=== PATIENT | male | born 1950 | race Hispanic/Latino ===

== ENCOUNTER → 2019-08-07 | Day surgery (SDC) | payer MEDICARE ==
[~2019-08-07] MED LIST: ASPIR 8181 MG PO; FENTANYL CITRATE/PF 100MCG/2 ML INJ ONE; FINASTERIDE5 MG PO; FLOMAX0.4 MG PO; LISINOPRIL10 MG PO; MIDAZOLAM HCL 2 MG/2 ML VIAL ONE; PROPOFOL IV EMULSION 10 MG/ML 50 ML VIAL ONE
--- OUTSIDE RECORDS SUMMARY | 2019-08-07 05:51 | XMS REPORT ---
Author Organization Unknown Address [address] [place] [address] Phone [phone] Care Team Providers Care Police Magistrate Name Role Phone JELLY "MANISHA DUMONT MD 3 [phone] Allergies Code Code System Name Reaction Severity Status Onset NKDA Medications Name Status Start Date Stop Date amlodipine 10 mg tablet Active Not available aspirin Completed 05/21/2017 aspirin 81 mg tablet,delayed release Take 1 tablet every day by oral route for 90 days. Active 05/21/2017 Not available atorvastatin 10 mg tablet Completed 02/14/2018 azithromycin 250 mg tablet Completed 02/14/2018 Bromfed DM 2 mg-30 mg-10 mg/5 mL syrup Completed 02/14/2018 cephalexin 500 mg capsule Completed 11/21/2017 ciprofloxacin 500 mg tablet Completed 11/21/2017 diphenoxylate-atropine 2.5 mg-0.025 mg tablet Completed 05/21/2017 finasteride 5 mg tablet Active Not available Gavilyte-C 240 gram-22.72 gram-6.72 gram-5.84 gram oral solution Completed 11/21/2017 ketorolac 0.5 % eye drops Completed 11/21/2017 levofloxacin 750 mg tablet Completed 11/21/2017 lisinopril 20 mg-hydrochlorothiazide 12.5 mg tablet Active Not available metoprolol succinate ER 50 mg tablet,extended release 24 hr Active Not available oxybutynin chloride ER 10 mg tablet,extended release 24 hr angelica 1 tableta por via oral micki vez cada modesto Completed 02/14/2018 polymyxin B sulfate 10,000 unit-trimethoprim 1 mg/mL eye drops Completed 11/21/2017 prednisolone acetate 1 % eye drops,suspension Completed 11/21/2017 Procto-Jakob 1 % topical cream perineal applicator Completed 02/14/2018 tamsulosin 0.4 mg capsule Active Not available tolterodine ER 2 mg capsule,extended release 24 hr Take 1 capsule every day by oral route for 60 days. Active Not available triamcinolone acetonide 40 mg/mL suspension for injection Take 1 mL by injection route. Completed 02/14/2018 Zostavax (PF) 19,400 unit/0.65 mL subcutaneous suspension Completed 11/21/2017 Problems Name Status Onset Date Source Hypertriglyceridemia Active 02/14/2017 Raised Prostate Specific Antigen Active 02/14/2017 Lower Urinary Tract Symptoms Due to Benign Prostatic Hypertrophy Active 02/14/2017 Malignant Hypertensive Chronic Kidney Disease Active 05/21/2017 Chronic Kidney Disease Stage 3 Active 05/21/2017 Chronic Diarrhea of Unknown Origin Unknown 05/21/2017 Vitreous Hemorrhage Active 06/14/2017 Hypertensive Retinopathy Active 07/30/2017 Adenocarcinoma of Prostate Active 09/11/2017 Arterial Retinal Branch Occlusion Active 09/20/2017 Optic Atrophy Active 09/20/2017 Vitreous Degeneration Active 09/20/2017 Obstructive Sleep Apnea Syndrome Active 01/22/2018 Procedures Date Name Performed by 08/15/2017 Colonoscopy Notes: repeat 1 year Information not available Ear Tube Notes: RIGHT 1980 Information not available Lab Results Date Name Specimen Result Interpretation Description Value Range Status Address 02/08/2018 Rapid Flu (A+B) Type Flu a negative [facility]: [address] [facility] [address], [place] Type Flu B negative [facility]: [address] [place] [address], [place] 12/04/2017 Urinalysis, Dipstick Color Color yellow [facility]: [address] [facility] [address], [place] Color Appearance clear [facility]: [address] [facility] [address], [place] Color Glucose negative [facility]: [address] [facility] [address], [place] Color Bilirubin negative [facility]: [address] [facility] [address], [place] Color Ketones negative [facility]: [address] [facility] [address], [place] Color Specific [place] 1.020 [facility]: [address] [facility] [address], [place] Color Blood trace [facility]: [address] [facility] [address], [place] Color PH 5.5 [facility]: [address] [facility] [address] [place] Color Protein negative [facility]: [address] [facility] [address], [place] Color Urobilinogen 0.2 [facility]: [address] [facility] [address], [place] Color [facility] [address] [facility] [address], [place] Color Leukocytes negative [facility]: [address] [facility] [address], [place] 06/15/2017 HbA1C (Hemoglobin a1C), Blood A1C W/eag 5.6 % 1.0-5.7 % Final [facility]: [address] Average Blood Glucose 114 mg/dL Final [facility]: [address] [place] [address], [place] 05/21/2017 PTH (Parathyroid Hormone), Intact, Serum or Plasma Normal Parathyroid Hormone, Intact 56 pg/mL 14-64 pg/mL Final [facility]: [address] [place] [address], [place] 05/21/2017 Protein:creatinine Ratio, Urine Normal Creatinine, Random Urine 209 mg/dL 20-370 mg/dL Final [facility]: [address] High Protein/creatinine Ratio 139 mg/g creat 22-128 mg/g creat Final [facility]: [address] High Protein, Total, Random Ur 29 mg/dL 5-25 mg/dL Final [facility]: [address] 05/21/2017 Magnesium, Serum or Plasma Normal Magnesium 2.1 mg/dL 1.5- 2.5 mg/dL Final [facility]: [address] [place] [address], [place] 05/21/2017 Phosphorus, Serum or Plasma Normal Phosphate (as Phosphorus) 2.5 mg/dL 2.1-4.3 mg/dL Final [facility]: [address] 05/21/2017 CBC W/ Auto Diff Wbc 7.11 x10*3/L 2.90-10.50 x10*3/L Final [facility]: [address] Rbc 4.83 10*12/L 3.61-5.21 10*12/L Final [facility]: [address] Hemoglobin 14.50 g/dL 12.30-17.50 g/dL Final [facility]: [address] Hematocrit 43.7 % 37.1-51.3 % Final [facility]: [address] Mcv 90.5 fL 79.4-101.6 fL Final [facility]: [address] Mch 30.0 pg 26.2-34.8 pg Final [facility]: [address] [place] Mchc 33.2 g/dL 30.2-35.6 g/dL Final [facility]: [address] [place] RDW-SD 41.9 fL 35.8-49.8 fL Final [facility]: [address] [place] Platelet Count 242.0 k/uL 118.8-347.0 k/uL Final [facility]: [address] [place] Mpv 11.6 fL 8.4-13.4 fL Final [facility]: [address] [place] Neut% 70.2 % 39.1-76.5 % Final [facility]: [address] [place] Lymph% 20.0 % 13.8-46.8 % Final [facility]: [address] [place] Mon% 7.9 % 4.6-14.4 % Final [facility]: [address] [place] Eos% 1.3 % 0.8-7.3 % Final [facility]: [address] [place] Baso% 0.6 % 0.2-1.5 % Final [facility]: [address] [place] Neut# 5.0 x10*3/L 0.8-7.0 x10*3/L Final [facility]: [address] [place] Lymph# 1.4 x10*3/L 0.6-3.2 x10*3/L Final [facility]: [address] [place] Mon# 0.6 x10*3/L 0.2-1.0 x10*3/L Final [facility]: [address] [place] Eos# 0.09 x10*3/L 0.04-0.51 x10*3/L Final [facility]: [address] [place] Baso# 0.04 x10*3/L 0.01-0.09 x10*3/L Final [facility]: [address] [place] 05/21/2017 CMP, Serum or Plasma Alt 15 U/L 0-55 U/L Final [facility]: [address], [place] Ast 14 U/L 5-34 U/L Final [facility]: [address] [place] Bun 18.3 mg/dL 8.4-25.7 mg/dL Final [facility]: [address], [place] Alk Phos 82 unit/L 40-150 unit/L Final [facility]: [address] [place] High Glucose 137 mg/dL 70-99 mg/dL Final [facility]: [address] [place] Low Albumin 3.4 g/dL 3.5-5.0 g/dL Final [facility] 1.02 mg/dL 0.72-1.25 mg/dL Final [facility]: [address] [place] [address] eGFR Non- >60 mL/min/1.73m2 >60 mL/min/1.73m2 Final [facility]: [address] [place] Total Bilirubin 0.3 mg/dL 0.2-1.2 mg/dL Final [facility] [facility] e[facility] - >60 mL/min/1.73m2 >60 mL/min/1.73m2 Final [facility] [address] [facility] Sodium 143 mEq/L 136-145 mEq/L Final [facility]: [address] [place] [address] Potassium 3.7 mEq/L 3.5-5.1 mEq/L Final [facility]: [address] [place] High Chloride 108 mmol/L 98-107 mmol/L Final [facility] Total Protein 6.7 g/dL 6.4-8.3 g/dL Final [facility] [facility] Low Calcium 8.4 mg/dL 8.8-10.0 mg/dL Final [facility]: [address] Co2 25.6 mmol/L 23.0-31.0 mmol/L Final [facility]: [address] Anion Gap 9 calc Final [facility]: [address] [place] [address], [place] 05/21/2017 Lipid Panel, Serum Hdl 47 mg/dL 40-60 mg/dL Final [facility]: [address] Triglyceride 126 mg/dL 0-149 mg/dL Final [facility]: [address] VLDL Calc. 25 mg/dL Final [facility]: [address] cholesterol/HDL Ratio 5 mg/dL Final [facility]: [address] High non-HDL Cholesterol Calc. 176 mg/dL 0-160 mg/dL Final [facility]: [address] High Cholesterol 223 mg/dL 0-199 mg/dL Final [facility]: [address] High LDL Calc. 151 mg/dL 0-130 mg/dL Final [facility]: [address] 05/21/2017 PSA, Serum or Plasma High PSA, Total 33.51 NG/mL <4.00 NG/mL Final [facility]: [address] Past Encounters 02/14/2018 Adenocarcinoma of Prostate; Dysuria-frequency Syndrome; Lower Urinary Tract Symptoms Due to Benign Prostatic Hypertrophy; Malignant Hypertensive Chronic Kidney Disease; Chronic Kidney Disease Stage 3; Obstructive Sleep Apnea Syndrome; Hypertensive Retinopathy; Vitreous Degeneration Jelly Dumont MD: [id number] [facility], [address] [address], Ph. 02/08/2018 Upper Respiratory Infection CHAN Wall: [address] [facility], [address] [address], [place]. 12/04/2017 Malignant Hypertensive Chronic Kidney Disease; Body Mass Index 30+ - Obesity; Morbid Obesity; Hypertensive Retinopathy; Chronic Kidney Disease Stage 3; Acute Radiation Cystitis; Adenocarcinoma of Prostate; Lower Urinary Tract Symptoms Due to Benign Prostatic Hypertrophy Jelly Dumont MD: [id number] [facility], [facility] [address] [address], Ph. 11/21/2017 Medical Assessment; Body Mass Index 30+ - Obesity; Morbid Obesity; Malignant Hypertensive Chronic Kidney Disease; Hypertensive Retinopathy; Chronic Kidney Disease Stage 3; Adenocarcinoma of Prostate; Lower Urinary Tract Symptoms Due to Benign Prostatic Hypertrophy Jelly Dumont MD: [id number] [facility], [address] [address], Ph. 06/15/2017 Benign Essential Hypertension; Hyperlipidemia; Hyperglycemia; Proteinuria; Morbid Obesity; Raised Prostate Specific Antigen Shawn Thomason MD: [id number] [facility], [address] [address], Ph. 05/21/2017 Adult Health Examination; Body Mass Index 30+ - Obesity; Malignant Hypertensive Chronic Kidney Disease; Chronic Kidney Disease Stage 3; Mixed Hyperlipidemia; Lower Urinary Tract Symptoms Due to Benign Prostatic Hypertrophy; Raised Prostate Specific Antigen; Screening for Malignant Neoplasm of Prostate; Screening for Malignant Neoplasm of Colon; Advance Directive Discussed with Patient; Immunization Jelly Dumont MD: [id number] [facility], [address] [address], Ph. Social History Smoking Status Former Smoker Vaccine List Vaccine Type pneumococcal conjugate PCV 13 05/25/20170.5 mL zoster 05/15/2017 Plan of Care Reminders Provider Appointments None recorded. Lab None recorded. Referral None recorded. Procedures None recorded. Surgeries None recorded. Imaging None recorded. Vitals 02/14/2018 09:45AM Est Patient Height Weight BMI Blood Pressure 5 ft 8 in 250.4 lbs 38.1 kg/m2 (1) 139/88 mm[Hg] (2) 138/86 mm[Hg] 02/08/2018 03:45PM Est Patient Height Weight BMI Blood Pressure 5 ft 8 in 250.2 lbs 38 kg/m2 127/82 mm[Hg] 12/04/2017 01:45PM Est Patient Height Weight BMI Blood Pressure 5 ft 8 in 259.6 lbs 39.5 kg/m2 137/89 mm[Hg] 11/21/2017 10:15AM Est Patient Height Weight BMI Blood Pressure 5 ft 8 in 261.8 lbs 39.8 kg/m2 136/84 mm[Hg] 06/15/2017 08:00AM Est Patient Height Weight BMI Blood Pressure 5 ft 8 in 256.2 lbs 39 kg/m2 (1) 162/101 mm[Hg] (2) 166/101 mm[Hg] 05/21/2017 08:30AM Est Patient Height Weight BMI Blood Pressure 5 ft 8 in 253 lbs 38.5 kg/m2 (1) 168/100 mm[Hg] (2) 165/105 mm[Hg]
--- OUTSIDE RECORDS SUMMARY | 2019-08-07 05:51 | XMS REPORT | Summary of Care ---
Author Author [facility] Organization [facility] Address Unknown Phone Unavailable Encounter HQ Encntr_alianna(FIN) [id number] Date(s): 02/03/18 - 02/03/18 [facility] [address] [place] [address]- Encounter Diagnosis Obstructive sleep apnea (adult) (pediatric) (Final) - 02/07/18 Discharge Disposition: Home or Self Care Attending Physician: Barrera Dumont MD Referring Physician: Barrera Dumont MD Vital Signs No data available for this section Problem List No data available for this section Allergies, Adverse Reactions, Alerts No data available for this section Medications No data available for this section Results No data available for this section Immunizations No data available for this section Procedures No data available for this section Social History No data available for this section Assessment and Plan No data available for this section
--- OUTSIDE RECORDS SUMMARY | 2019-08-07 05:51 | XMS REPORT | Summary of Care ---
Author Author [facility] Organization [facility] Address Unknown Phone Unavailable Encounter HQ Encntr_alias(FIN) [id number] Date(s): 12/02/17 - 12/02/17 [facility] [address] [place] [address]- Discharge Disposition: Home or Self Care Attending Physician: Gaetano Robins MD Referring Physician: Barrera Dumont MD Vital [...]
--- OUTSIDE RECORDS SUMMARY | 2019-08-07 05:51 | XMS REPORT | Continuity of Care Document ---
Author Author [employer] Organization [employer] Address Unknown Phone Unavailable Care Team Providers Care Punch Press Setter Name Role Phone [employer] Unavailable Unavailable Problems Problem Status Onset Date Classification Date Reported Comments Source Obstructive sleep apnea (pediatric) 02/08/2018 05/12/2018 [facility] CPAP [address] Active 02/01/2018 [facility] Encounter for examination and observation for other specified reasons 12/07/2017 03/10/2018 [facility] FIRST NIGHT [address] Active 11/27/2017 [facility] Medications No Data Provided for This Section Allergies, Adverse Reactions, Alerts No Known Medication Allergies Immunizations No Data Provided for This Section Results No Data Provided for This Section Pathology Reports No Data Provided for This Section Diagnostic Reports No Data Provided for This Section Consultation Notes No Data Provided for This Section Discharge Summaries No Data Provided for This Section History and Physicals No Data Provided for This Section Vital Signs No Data Provided for This Section Encounters Location Location Details Encounter Type Encounter Number Reason For Visit Attending Provider ADM Date DC Date Status Source [facility] [id number] Barrera Dumont 12/03/2017 12/03/2017 [facility] [id number] Barrera Dumont 02/04/2018 02/04/2018 [facility] Procedures No Data Provided for This Section Assessment and Plan No Data Provided for This Section Plan of Care No Data Provided for This Section Social History Social History Date Source No data available for this section 02/04/2018 [facility] Family History No Data Provided for This Section Advance Directives No Data Provided for This Section Functional Status No Data Provided for This Section
--- OUTSIDE RECORDS SUMMARY | 2019-08-07 05:51 | XMS REPORT | Summary of Care ---
Author Author [facility] Organization [facility] Address Unknown Phone Unavailable Encounter HQ Encntr_alias(FIN) [id number] Date(s): 12/02/17 - 12/02/17 [facility] [address] [place] [address]- Encounter Diagnosis Encounter for examination and observation for other specified reasons (Final) - 12/06/17 Discharge Disposition: Home or Self Care Attending [...]
[2019-08-07 08:44] LABS: BASOPHILS % 0.5 % (0.0-1.0); EOSINOPHILS # (AUTO) 0.1 (0.0-0.4); EOSINOPHILS % 1.5 % (0.0-6.0); HEMATOCRIT 42.4 % (38.2-49.6); HEMOGLOBIN 14.7 g/dL (14.0-18.0); LYMPHOCYTES # (AUTO) 1.4 (1.0-3.2); LYMPHOCYTES % 23.5 % (18.0-39.1); MEAN CORPUSCULAR HEMOGLOBIN 30.1 pg (28-32); MEAN CORPUSCULAR HGB CONC 34.7 g/dL (31-35); MEAN CORPUSCULAR VOLUME 86.9 fL (81-99); MONOCYTES # (AUTO) 0.6 (0.2-0.8); MONOCYTES % 10.8 % (4.4-11.3); NEUTROPHILS # (AUTO) 3.7 (2.1-6.9); NEUTROPHILS % 63.5 % (38.7-80.0); PLATELET COUNT 253 x10e3/uL (140-360); RED BLOOD COUNT 4.88 x10e6/uL (4.3-5.7); RED CELL DISTRIBUTION WIDTH 13.2 % (11.7-14.4)
[2019-08-07 10:00] VITALS: BP 124/72
== END | disposition home or self-care (01) ==
LOC: OR 05:49
PROVIDERS: ATTEND Internal Medicine Gastroenterology
DX: Z12.11 Encounter for screening for malignant neoplasm of colon (principal); K57.30 Diverticulosis of large intestine without perforation or abscess without bleeding; K64.8 Other hemorrhoids; Z71.3 Dietary counseling and surveillance; I10 Essential (primary) hypertension; E78.00 Pure hypercholesterolemia, unspecified; E66.01 Morbid (severe) obesity due to excess calories; Z79.82 Long term (current) use of aspirin; Z68.41 Body mass index [BMI] 40.0-44.9, adult; Z87.891 Personal history of nicotine dependence
CPT/HCPCS: 36415; 85025; 93005; G0121; J2250; J2704; J3010; 45378